=== PATIENT | female | born 1995 | race Caucasian/White ===

== ENCOUNTER 2019-06-17 16:56 | Inpatient (IN) ==
[2019-06-17 16:05] LABS: Amphetamine Screen,Urine Negative ng/mL (Cutoff=1000); Barbiturate Screen,Urine Negative ng/mL (Cutoff=200); Benzodiazepines Screen,Urine Negative ng/mL (Cutoff=200); Cannabinoid Screen,Urine Negative ng/mL (Cutoff = 50); Cocaine Screen,Urine Negative ng/mL (Cutoff= 300); Creatinine,Urine 149 mg/dL; Opiate Screen,Urine Negative ng/mL (Cutoff=300); Phencyclidine Screen,Urine Negative ng/mL (Cutoff=25); Protein/Creatinine Ratio,Urine 0.17 mg/mg (0.00-0.20)
[~2019-06-17 16:56] MED LIST: *HR* Labetalol 20 MG/4 ML SYRINGE IVP ONE; *HR* Labetalol 20 MG/4 ML SYRINGE IVP PRN; Ringers Solution, Lactated 1,000 ML ONE
[2019-06-17] MEDS ORDERED: Famotidine 20 MG/2 ML VIAL IVP PRN (16:57)
[2019-06-17] MEDS ORDERED: Metoclopramide 10 MG/2 ML VIAL IVP PRN (16:57)
[2019-06-17] MEDS ORDERED: Naloxone 0.4 MG/ML INJ IVP PRN (16:57)
[2019-06-17] MEDS ORDERED: Ondansetron 4 MG/2 ML VIAL IVP PRN (16:57)
[2019-06-17 17:24] LABS: Basophils % 0.2 %; Eosinophils # 0.1 K/mcL (0.0-0.6); Eosinophils % 0.6 %; Hematocrit 32.3 % (35.3-44.9); Hemoglobin 10.4 g/dL (11.5-15.4); Lymphocytes # 2.2 K/mcL (0.6-4.6); Lymphocytes % 17.7 %; Mean Corpuscular HGB Conc 32.2 g/dL (31.6-35.5); Mean Corpuscular Volume 83.9 fL (83.0-100.0); Mean Platelet Volume 9.1 fL (9.4-12.4); Monocytes # 0.8 K/mcL (0.0-1.3); Neutrophils # 9.5 K/mcL (1.6-8.9); Platelet Count 310 K/mcL (140-400); Red Blood Count 3.85 M/mcL (3.82-4.97); Red Cell Distribution Width 13.4 % (11.5-14.5); Segmented Neutrophils % 74.5 %; White Blood Count 12.7 K/mcL (4.3-11.1)
[2019-06-17 17:42] LABS: Alanine Aminotransferase 13 Units/L (7-52); Aspartate Amino Transferase 12 Units/L (13-39); BUN/Creatinine Ratio 16 (6-26); Blood Urea Nitrogen 8 mg/dL (6-20); Lactate Dehydrogenase 153 Units/L (140-271); Uric Acid 4.8 mg/dL (2.3-7.6); eGFR For African Americans > 60 (> 60); eGFR For Non-African Americans > 60 (> 60)
--- NOTE | 2019-06-17 19:56 | OB/GYN History & Physical ---
Date of Encounter: 06/18/19 Time of Encounter: 19:53 Assessment and Plan (1) Hypertension affecting in third trimester Current visit: Yes Status: Acute spot urine protein elevate at 26, admit to obs for 24 hour urine protein collection and monitoring for s/s of preeclampsia. (2) Headache Current visit: Yes Status: Acute Acetaminophen PRN Qualifiers: Headache type: unspecified Headache chronicity pattern: acute headache Qualified Code(s): R51 - Headache (3) 36 weeks gestation of Current visit: Yes Status: Acute Admit overnight for BP monitoring and 24 hour urine collection. Plan of care made in collaboration with Dr. George (4) NST (non-stress test) reactive Current visit: Yes Status: Acute FHR 130 bpm, moderate variability, +15x15 accels, no decels. History of Present Illness Chief complaint: Elelvated BP HPI: Ms. Reyna is a 23 year old female G1 with PMH significant for HTN who is at 36 weeks, 6 days gestation. She presents to L&D after having elevated blood pressures at an office visit today. Her pressure was measured in the 180's / 90's, and she was sent for evaluation for preeclampsia superimposed on preexisting HTN. She reports a mild headache that is rated at a 1/10 an has been present today only. it is located bilaterally on the top and sides of her head and is not really bothering her much. she denies any visual changes, any dizziness, light headedness, syncope, any chest pain, trouble breathing, cough, nausea, vomiting, abdominal pain, or any extremity swelling, numbness, or tingling. She reports a PMHx of Hypothyroidism, for which she takes levothyroxine 150 micrograms/day in addition to her HTN, for which she takes methyldopa. denies allergies, surgical Hx, family hx, or tobacco, etoh, or drug use. Past Med Surg Social Fam HX - Past Medical History Source: patient Medical history: hypertension Additional medical history: hypothyroidism, low Vitamin D, Psychiatric history: anxiety - Past Surgical History Surgical History: no surgical history - Social History Smoking Status: Never smoker Smokeless Tobacco Status: No Alcohol use: none Drug use: none Current living situation: Home - Independent, With Family Activity Level: Independent ambulation Recent Out of Country Travel Within the Last 8 Weeks: No Exposure or Possible Exposure to Illness During Travel: No - Family History Mother Adopted: [place]: Chana Albarran Family Member Ethnicity: Non- Living Status: Still Living Hx Family Cardiac Disorders: Yes (hypertension) Hx Family Respiratory Disorders: No Hx Family Cancer: No Hx Family GI Disorders: No Hx Family Genitourinary Disorders: No Hx Family Endocrine Disorder: No Hx Family Musculoskeletal Disorders: No Hx Family Neuromuscular Disorders: No Hx Family Neurologic Disorders: No Hx Family HEENT Disorders: No Hx Family Autoimmune Disorders: No Hx Family Reproductive Disorders: No Hx Family Psychosocial Disorders: No Hx Family Medical Disorders: No Obstetrical History - Pregnancies : 1 Medications and Allergies Levothyroxine [Synthroid] 06/17/19 [History] Methyldopa 500 mg PO QPM 06/17/19 [History] Methyldopa 750 mg PO QAM 06/17/19 [History] Allergy/AdvReac Type Severity Reaction Status Date / Time No Known Allergies Allergy Verified 06/17/19 15:50 Review of System OB All systems PM: reviewed and no additional remarkable complaints except as stated ([ROS as per HPI]) Exam - Constitutional Constitutional: well developed, well nourished, no acute distress, obese - HEENT HEENT: Normocephaly, Mucus Membranes Moist - Lungs Respiratory exam: CTAB - Cardiovascular Cardiovascular exam: RRR, +S1, +S2 - Abdomen Abdomen: Present: bowel sounds normal, gravid (uterine height appropriate foe gestational age), non tender. Absent: guarding noted - Extremities Extremities exam: pedal edema (+2 pitting LE edema bilaterally) - Uterus Uterus exam: Present: normal size, normal contour. Absent: nodular, tender Results Result Diagrams: 06/18/19 05:31 06/18/19 05:31 Abnormal lab results WBC 12.7 K/mcL (4.3-11.1) H 06/17/19 16:45 Hgb 10.4 g/dL (11.5-15.4) L 06/17/19 16:45 Hct 32.3 % (35.3-44.9) L 06/17/19 16:45 MCH 27.0 pg (28.0-33.3) L 06/17/19 16:45 MPV 9.1 fL (9.4-12.4) L 06/17/19 16:45 Neutrophils # 9.5 K/mcL (1.6-8.9) H 06/17/19 16:45 Creatinine 0.49 mg/dL (0.60-1.20) L 06/17/19 16:45 AST 12 Units/L (13-39) L 06/17/19 16:45 Urine Total Protein 26 mg/dL (1-14) H 06/17/19 15:37 All other labs normal. - VTE Reasons for not Prescribing Prophylaxis: Treatment not Indicated - Low risk for VTE
[2019-06-18] MEDS: Acetaminophen/Butalbital/CaffeineTABLET PO PRN ×2 (02:56→13:32)
[2019-06-18 05:45] LABS: Basophils % 0.2 %; Eosinophils # 0.1 K/mcL (0.0-0.6); Eosinophils % 0.7 %; Hematocrit 30.2 % (35.3-44.9); Hemoglobin 9.5 g/dL (11.5-15.4); Immature Granulocytes % 1.1 % (0-4); Lymphocytes # 2.5 K/mcL (0.6-4.6); Lymphocytes % 23.4 %; Mean Corpuscular HGB Conc 31.5 g/dL (31.6-35.5); Mean Corpuscular Hemoglobin 26.9 pg (28.0-33.3); Mean Corpuscular Volume 85.6 fL (83.0-100.0); Mean Platelet Volume 8.9 fL (9.4-12.4); Monocytes # 0.7 K/mcL (0.0-1.3); Monocytes % 6.8 %; Neutrophils # 7.3 K/mcL (1.6-8.9); Platelet Count 279 K/mcL (140-400); Red Blood Count 3.53 M/mcL (3.82-4.97); Red Cell Distribution Width 13.3 % (11.5-14.5); Segmented Neutrophils % 67.8 %; White Blood Count 10.7 K/mcL (4.3-11.1)
[2019-06-18 06:07] LABS: Alanine Aminotransferase 12 Units/L (7-52); Aspartate Amino Transferase 11 Units/L (13-39); BUN/Creatinine Ratio 17 (6-26); Blood Urea Nitrogen 8 mg/dL (6-20); Lactate Dehydrogenase 143 Units/L (140-271); Uric Acid 4.3 mg/dL (2.3-7.6); eGFR For African Americans > 60 (> 60); eGFR For Non-African Americans > 60 (> 60)
[2019-06-18] MEDS ORDERED: Magnesium Oxide 400 MG TABLET PO ONE (11:10)
--- NOTE | 2019-06-18 12:00 | OB/GYN Progress Note ---
Date of Encounter: 06/18/19 Time of Encounter: 11:54 - Assessment and Plan (1) 36 weeks gestation of Current Visit: Yes Status: Acute Labs remain normal this am. 24 hour urine pending will be complete at roughly 8pm tonight anticipate discharge home this evening vs admitting for IOL POC per consult with Dr Huddleston (2) Hypertension affecting in third trimester Current Visit: Yes Status: Acute Subjective - Subjective Principal diagnosis: Rule out superimposed pre-eclampsia Interval history: Ms Reyna is a at 37 weeks and 0 days that presented to triage for a superimposed Pre-E on CHTN rule out. She c/o a mild headache that tylenol and fioricet have not helped. She denies visual disturbances and epigastric pain. She appreciates positive movement. She states she had high blood pressure prior to . She is seen by Dr Mcdonald for her care. Antepartum ROS: movement normal Objective - Vital Signs Vital Signs: Vital Signs Temp Pulse Resp BP Pulse Ox 06/18/19 07:44 97.8 F 79 16 150/83 98 06/18/19 04:50 97.8 F 82 16 113/68 98 06/18/19 00:35 97.9 F 75 16 130/81 98 06/17/19 22:35 98.0 F 85 16 149/93 99 06/17/19 20:10 98.7 F 90 16 136/96 99 Intake and Output 06/17/19 06/18/19 06/18/19 23:59 07:59 15:59 Intake Total 120 / 120 Output Total 500 / 500 Balance -380 / -380 Intake: Oral 120 / 120 Output: Urine 500 / 500 Other: Weight 153.405 kg Patient Weight 06/18/19 23:59 Weight 153.405 kg - Exam Auscultation: bilateral: normal Abdomen: Present: normal appearance, soft, gravid. Absent: tenderness Uterus: Present: normal. Absent: firm Comments: Reflexes normal Edema to BLE and BUE both are 2+ - Labs Labs: Abnormal lab results WBC 12.7 K/mcL (4.3-11.1) H 06/17/19 16:45 RBC 3.53 M/mcL (3.82-4.97) L 06/18/19 05:31 Hgb 9.5 g/dL (11.5-15.4) L 06/18/19 05:31 Hct 30.2 % (35.3-44.9) L 06/18/19 05:31 MCH 26.9 pg (28.0-33.3) L 06/18/19 05:31 MCHC 31.5 g/dL (31.6-35.5) L 06/18/19 05:31 MPV 8.9 fL (9.4-12.4) L 06/18/19 05:31 Neutrophils # 9.5 K/mcL (1.6-8.9) H 06/17/19 16:45 Creatinine 0.48 mg/dL (0.60-1.20) L 06/18/19 05:31 AST 11 Units/L (13-39) L 06/18/19 05:31 Urine Total Protein 26 mg/dL (1-14) H 06/17/19 15:37
[2019-06-18 23:28] LABS: Total Volume 24 Hour,Urine 1.74 Liters (0.60-1.60)
[2019-06-18 23:41] LABS: Protein/Creatinine Ratio,Urine 0.17 mg/mg (0.00-0.20)
[2019-06-19] MEDS: Acetaminophen/Butalbital/CaffeineTABLET PO PRN (06:55)
[2019-06-19 08:16] VITALS: BP 129/85
--- NOTE | 2019-07-01 22:08 | Discharge Summary ---
Date of Encounter: 07/01/19 (This patient is feeling well. All labs were reviewed. There has been significant improvement in her labs. Blood pressures are stable. Patient with no headache visual changes or epigastric pain. Patient wishes to go home. 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 All liver enzymes heading back to normal. 24 hour urine is less than 300. Warning signs of preeclampsia were discussed this patient. She understands this completely.) Time of Encounter: 07:30 - Discharge Diagnosis (1) Chronic hypertension affecting Priority: Primary Status: Acute (2) Morbid obesity with BMI of 50.0-59.9, adult Priority: Secondary Status: Acute - Discharge Medications Prescriptions: No Action Levothyroxine [Synthroid] 1 tab PO DAILY Aspirin 1 mg PO DAILY 19 Tablet 1 tab PO DAILY Ferrous Sulfate 325 mg PO BIDWM #60 tablet Acetaminophen [Tylenol] 650 mg PO Q6HR PRN tablet PRN Reason: Mild Pain Benzocaine/Menthol [place] [Dermoplast [place]] 1 appl TP QID PRN aerosol PRN Reason: See Comments Docusate [Colace] 100 mg PO BID #60 capsule Levothyroxine [Synthroid] 150 mcg PO 0630 tablet Lanolin [Lansinoh] 1 appl TP QID PRN oint...g. PRN Reason: Home Medications: Levothyroxine [Synthroid] 1 tab PO DAILY 06/17/19 [History] Aspirin 1 mg PO DAILY 06/23/19 [History] 19 Tablet 1 tab PO DAILY 06/23/19 [History] Acetaminophen [Tylenol] 650 mg PO Q6HR PRN tablet 06/26/19 [Rx] Benzocaine/Menthol [place] [Dermoplast [place]] 1 appl TP QID PRN aerosol 06/26/19 [Rx] Docusate [Colace] 100 mg PO BID #60 capsule 06/26/19 [Rx] Ferrous Sulfate 325 mg PO BIDWM #60 tablet 06/26/19 [Rx] Lanolin [Lansinoh] 1 appl TP QID PRN oint...g. 06/26/19 [Rx] Levothyroxine [Synthroid] 150 mcg PO 0630 tablet 06/26/19 [Rx] Allergies/Adverse Reactions: Allergy/AdvReac Type Severity Reaction Status Date / Time No Known Allergies Allergy Verified 06/23/19 18:43 Data Procedures and tests throughout hospitalization: Laboratory Tests 06/17/19 06/17/19 06/17/19 15:37 16:45 16:45 WBC 12.7 H RBC 3.85 Hgb 10.4 L Hct 32.3 L MCV 83.9 MCH 27.0 L MCHC 32.2 RDW 13.4 Plt Count 310 MPV 9.1 L Immature Gran % 1.0 Seg Neutrophils % 74.5 Lymphocytes % 17.7 Monocytes % 6.0 Eosinophils % 0.6 Basophils % 0.2 Neutrophils # 9.5 H Lymphocytes # 2.2 Monocytes # 0.8 Eosinophils # 0.1 Basophils # 0.0 BUN 8 Creatinine 0.49 L Est GFR ( Amer) > 60 Est GFR (Non-Af Amer) > 60 BUN/Creatinine Ratio 16 Uric Acid 4.8 AST 12 L ALT 13 Lactate Dehydrogenase 153 Urine Total Volume Urine Creatinine 149 Ur Creatinine 24 Hour Ur Total Protein 24 Hr Protein/Creatinin Ratio 0.17 Urine Total Protein 26 H Urine Opiates Screen Negative Ur Buprenorphine Scrn Negative Ur Barbiturates Screen Negative Ur Phencyclidine Scrn Negative Ur Amphetamines Screen Negative U Benzodiazepines Scrn Negative Urine Cocaine Screen Negative U Marijuana (THC) Screen Negative Ur Drug Screen Interp See Below 06/18/19 06/18/19 06/18/19 05:31 05:31 22:30 WBC 10.7 RBC 3.53 L Hgb 9.5 L Hct 30.2 L MCV 85.6 MCH 26.9 L MCHC 31.5 L RDW 13.3 Plt Count 279 MPV 8.9 L Immature Gran % 1.1 Seg Neutrophils % 67.8 Lymphocytes % 23.4 Monocytes % 6.8 Eosinophils % 0.7 Basophils % 0.2 Neutrophils # 7.3 Lymphocytes # 2.5 Monocytes # 0.7 Eosinophils # 0.1 Basophils # 0.0 BUN 8 Creatinine 0.48 L Est GFR ( Amer) > 60 Est GFR (Non-Af Amer) > 60 BUN/Creatinine Ratio 17 Uric Acid 4.3 AST 11 L ALT 12 Lactate Dehydrogenase 143 Urine Total Volume 1.74 H Urine Creatinine 82 Ur Creatinine 24 Hour 1427 Ur Total Protein 24 Hr 244 H Protein/Creatinin Ratio 0.17 Urine Total Protein 14 Urine Opiates Screen Ur Buprenorphine Scrn Ur Barbiturates Screen Ur Phencyclidine Scrn Ur Amphetamines Screen U Benzodiazepines Scrn Urine Cocaine Screen U Marijuana (THC) Screen Ur Drug Screen Interp Date of admission: 06/17/19 17:27 Primary care physician: Germaine Mart CNP - Patient Status Disposition: Home, Self-Care Condition: Good Functional capacity at discharge: independent ambulation Overall status at discharge: patient is back to baseline - Discharge Instructions Instructions: Chronic Hypertension (DC) Follow Up With: Germaine Mart CNP [Primary Care Provider] - Additional Instructions: Follow up with your primary OB early next week, Watch you BP three times a day. Write these down and bring with you. Continue your home BP medications as prescribed. Call if you have elevated BPs above 150/90, headaches that do not resolve with Tylenol, increased swelling or epigastric pain. Make sure you continue your kick counts daily. 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 Time Attestation: Total time spent providing and/or coordinating discharge services: Exam - Constitutional Vitals: Temp Pulse Resp BP Pulse Ox 97.6 F 78 16 129/85 99 06/19/19 08:15 06/19/19 08:15 06/19/19 08:15 06/19/19 08:15 06/19/19 08:15 General appearance IM: A&O X 3 - Respiratory Respiratory exam: Present: CTAB - Cardiovascular Cardiovascular exam IM: Present: RRR - GI/Abdominal GI/Abdominal exam IM: normal bowel sounds - External exam: normal external exam - Extremities Exam Extremities exam IM: Present: full ROM, normal capillary refill, normal inspection - Neurological Exam Neurological exam: CN II-XII intact (Patient is feeling well today. She is having no complaints. Denies headache, visual changes or epigastric pain. She would like to go home.) - VTE Reasons for not Prescribing Prophylaxis: Treatment not Indicated - Low risk for VTE
== END 2019-06-19 12:24 | disposition home or self-care (01) | DRG 833 ==
LOC: 1NENULAB → 1NENUOBS 21:16
PROVIDERS: ADMIT Registered Nurse; ATTEND Registered Nurse